=== PATIENT | male | born 1995 | race Caucasian/White ===

== ENCOUNTER 2017-08-01 00:01 | Emergency (ER) | payer OTHER, MEDICAID, SELFPAY ==
[2017-08-01 00:06] VITALS: BP 122/80; PULSE 98; RESP 20; TEMP 36.9; O2SAT 95; BMI 27.4
[2017-08-01 00:09] VITALS: BP 122/80; PULSE 98; RESP 20; TEMP 36.9; O2SAT 95; BMI 27.4
--- NOTE | 2017-08-01 00:21 | ED.ABDPAIN ---
HPI - Abdominal Pain General Chief Complaint: Abdominal Pain Stated Complaint: DIARRHEA WITH BLOOD IN IT Time Seen by Provider: 08/01/17 00:20 Source: patient and family Mode of arrival: ambulatory Limitations: physical limitation (Mental and physical delay) History of Present Illness HPI narrative: Patient is a 22-year-old with developmental delay presenting with diarrhea. Mom says that he has had at least 7 episodes that happened pretty quickly this evening. The last 1 she noticed on a that he had some blood. She did not notice bright red blood in the toilet bowl nor was it dark. He is not vomiting does not have fever he is tolerating oral fluids. She did give him some Lomotil which she realized . Patient appears comfortable and does not have any complaints. MD complaint: abdominal pain Related Data Home Medications Medication Instructions Recorded Confirmed CLORAZEPATE DIPOTASSIUM (Tranxene) 7.5 mg PO HS #0 04/15/10 Allergies Allergy/AdvReac Type Severity Reaction Status Date / Time Penicillins [PENICILLINS] Allergy Mild Verified 08/01/17 00:09 Review of Systems Review of Systems All systems reviewed & are unremarkable except as noted in HPI and below Constitutional Denies chills, Denies fever(s), Denies lethargy and Denies weakness Cardiovascular Denies chest pain, Denies irregular heart rhythm, Denies lightheadedness, Denies palpitations, Denies dyspnea, Denies dyspnea on exertion and Denies orthopnea Respiratory Denies cough, Denies dyspnea, Denies dyspnea on exertion and Denies wheezing Gastrointestinal Gastrointestinal: Reports as per HPI, Reports system reviewed and no additional complaints, except as docu, Denies abdominal pain, Reports change in bowel habits, Reports diarrhea, Denies nausea and Denies vomiting Musculoskeletal Denies back pain, Denies muscle weakness, Denies numbness and Denies tingling Neurologic Denies numbness, Denies tingling and Denies weakness Endocrine Denies palpitations Allergic/Immunologic Denies wheezing [facility] Medical History Cognitive developmental delay (Acute) Seizure (Acute) Social History Smoking Status: Never smoker Exam Initial Vital Signs Initial Vital Signs: Vital Signs Temperature 98.5 F 08/01/17 00:06 Pulse Rate 98 H 08/01/17 00:06 Respiratory Rate 20 08/01/17 00:06 Blood Pressure 122/80 H 08/01/17 00:06 Pulse Oximetry 95 08/01/17 00:06 Const General: cooperative, healthy appearing and comfortable Orientation: alert and awake HENMT Head: normal to inspection Mouth: moist mucous membranes Resp Effort & Inspection: normal respiratory effort, able to speak in complete sentences, no respiratory distress and no use of accessory muscles Auscultation: clear to auscultation bilaterally, no rales, no rhonchi and no wheezes Cardio Rate: regular rate Rhythm: regular rhythm Heart Sounds: no click, no gallops, no murmurs and no rubs Pulses: normal peripheral pulses GI Rectal Exam: visual inspection normal, No fecal impaction, heme negative stool and No hemorrhoids Other: He does have brought skin around the anus. No hemorrhoids no gross blood Skin General: no rashes or lesions noted, No jaundice and No petechiae Course Vital Signs - 8 hr 08/01/17 00:06 08/01/17 00:09 Temperature 98.5 F 98.5 F Pulse Rate 98 H 98 H Respiratory Rate 20 20 Blood Pressure 122/80 H 122/80 H Pulse Oximetry 95 95 MDM - Abdominal Pain MDM Narrative Medical decision making narrative: Patient does not appear to be acutely dehydrated. In fact he is also tolerating oral fluids. He blood on the wipe was likely from raw skin. At this point he does not appear toxic. Discussed oral rehydration with caregiver. All questions have been addressed. Discharge Plan Departure Patient Disposition: Home, Self-Care Clinical Impression: Gastroenteritis Discharge Date/Time: 08/01/17 00:40 Interventions: ED Discharge Assessment Last Done: 08/01/17 00:40 Instructions: DI for Viral Gastroenteritis -- Adult Activity Restrictions/Additional Instructions: 1) You have been diagnosed with likely viral gastroenteritis 2) What to do: Drink frequent but small amounts of fluids. I recommend Gatorade or a Gatorade-like product, as it has small amounts of sugar and salts that improve fluid retention. 3) Take medications as directed 4) Follow up with your primary care provider in 2-3 days 5) Return to ER if you should have any new or worsening symptoms such as, unable to hold down fluids, increased diarrhea, fever or any other concerns Prescriptions: No Action CLORAZEPATE DIPOTASSIUM (Tranxene) 7.5 mg PO HS Qty: 0 RF: 0 Referrals: Anish Spears MD [Primary Care Provider] -
== END 2017-08-01 00:40 | disposition home or self-care (01) ==
PROVIDERS: Emergency Provider Emergency Medicine; Family Provider Family Medicine; PCP Family Medicine
DX: K52.9 Noninfective gastroenteritis and colitis, unspecified (principal)
CPT/HCPCS: 99282

== ENCOUNTER → 2022-04-17 13:22 | Outpatient (CLI) | payer MEDICARE, MEDICAID, SELFPAY ==
[2022-04-17 14:14] LABS: Add Manual Diff / Slide Review NO; Basophils Absolute Auto 200 /uL (0-100); Basophils Percent Auto 1.4 % (0-2); Eosinophils Absolute Auto 300 /uL (0-450); Eosinophils Percent Auto 2.3 % (2-4); Hematocrit 49.7 % (41-53); Hemoglobin 16.6 g/dL (13.5-17.5); Lymphocytes Absolute Auto 2800 /uL (1100-4500); Lymphocytes Percent Auto 25.4 % (25-40); Mean Corpuscular HGB Conc 33.4 % (30-36); Mean Corpuscular Hemoglobin 28.7 PG (26-34); Monocytes Absolute Auto 700 /uL (0-900); Monocytes Percent Auto 6.4 % (3-14); Neutrophils Absolute Auto 7100 /uL (1500-7000); Neutrophils Percent Auto 64.5 % (50-75); Platelet Count 317 X10^3/uL (150-400); Red Blood Cell Count 5.79 X10^6/uL (4.5-5.9); Red Cell Distribution Width 13.7 % (11.6-14.8); White Blood Cell Count 11.1 X10^3/uL (4.5-11.0)
[2022-04-17 14:28] LABS: Alanine Aminotransferase 45 IU/L (<50); Albumin 4.7 g/dL (3.5-5.0); Albumin Globulin Ratio 1.4 (1.0-2.8); Alkaline Phosphatase 109 U/L (38-126); Aspartate Aminotransferase 34 IU/L (17-59); BUN Creatinine Ratio 19.7 (6-22); Bilirubin Total 0.3 mg/dL (0.2-1.3); Blood Urea Nitrogen 14 mg/dL (9-20); Calcium 9.4 mg/dL (8.4-10.2); Carbon Dioxide 28 mmol/L (22-32); Chloride 100 mmol/L (98-107); Estimated Glomerular Filt Rate > 60 mL/min (>60); Globulin 3.3 g/dL (1.7-4.1); Glucose 124 mg/dL (70-100); HEMOLYSIS < 15 (0-50); Sodium 140 mmol/L (137-145)
[2022-04-20 08:40] LABS: Levetiracetam Keppra 14.1 ug/mL (10.0-40.0)
[2022-04-21 00:51] LABS: Vitamin C 1.1 mg/dL (0.4-2.0)
== END ==
PROVIDERS: Family Provider Family Medicine; PCP Nurse Practitioner; Referring Provider Nurse Practitioner; Visit Provider Nurse Practitioner
DX: E54 Ascorbic acid deficiency (principal); Z79.899 Other long term (current) drug therapy
CPT/HCPCS: 36415; 80053; 80177; 82180; 85025